=== PATIENT | female | born 2000 | race Caucasian/White ===

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

== ENCOUNTER 2018-06-22 10:47 | Emergency (ER) | payer OTHER ==
[~2018-06-22] VITALS: Ht 160 cm; Wt 76.2 kg
[2018-06-22 11:13] VITALS: Ht 160 cm; Wt 76.2 kg
[2018-06-22 12:10] VITALS: BP 130/80
== END 2018-06-22 12:10 | disposition home or self-care (01) ==
LOC: ED 10:47
DX: N39.0 Urinary tract infection, site not specified (principal)

== ENCOUNTER 2018-07-08 12:04 | Emergency (ER) | payer OTHER ==
[~2018-07-08] VITALS: Ht 157.5 cm; Wt 75.3 kg
[2018-07-08 12:17] VITALS: Ht 157.5 cm; Wt 75.3 kg
[2018-07-08 15:13] VITALS: BP 120/79
== END 2018-07-08 15:13 | disposition home or self-care (01) ==
LOC: ED 12:04
DX: J02.9 Acute pharyngitis, unspecified (principal)
CPT/HCPCS: J0561; J1885; J7512

== ENCOUNTER 2018-09-13 18:51 | Emergency (ER) | payer OTHER ==
[~2018-09-13] VITALS: Ht 157.5 cm; Wt 76.2 kg
[2018-09-13 18:59] VITALS: Ht 157.5 cm; Wt 76.2 kg
[2018-09-13 19:54] VITALS: BP 130/70
== END 2018-09-13 19:54 | disposition home or self-care (01) ==
LOC: ED 18:51
DX: B35.4 Tinea corporis (principal)

== ENCOUNTER 2019-06-04 21:21 | Emergency (ER) | payer OTHER ==
[~2019-06-04] VITALS: Ht 160 cm; Wt 80.9 kg
[2019-06-04 22:11] VITALS: BP 135/83; Ht 160 cm; Wt 80.9 kg
== END 2019-06-05 01:21 | disposition home or self-care (01) ==
LOC: ED 21:21
DX: J02.9 Acute pharyngitis, unspecified (principal)

== ENCOUNTER 2019-08-10 15:59 | Emergency (ER) | payer OTHER ==
[~2019-08-10] VITALS: Ht 160 cm; Wt 79.4 kg
[2019-08-10 16:06] VITALS: BP 114/76; Ht 160 cm; Wt 79.4 kg
== END 2019-08-10 19:03 | disposition home or self-care (01) ==
LOC: ED 15:59
DX: J03.90 Acute tonsillitis, unspecified (principal)

== ENCOUNTER 2019-09-26 18:33 | Emergency (ER) | payer OTHER ==
[~2019-09-26] VITALS: Ht 160 cm; Wt 78.0 kg
[2019-09-26 18:48] VITALS: Ht 160 cm; Wt 78.0 kg
[2019-09-26 19:22] LABS: BASOPHIL % 0.4 % (0-2); PLATELET COUNT 287 x10^3mcL (130-400); RED CELL DISTRIBUTION WIDTH 12.8 % (11.5-14.5)
[2019-09-26 19:28] LABS: CALCIUM 8.6 mg/dL (8.5-10.1); CARBON DIOXIDE 29.3 mmol/L (21-32); CHLORIDE SERUM 105 mmol/L (98-107); CREATININE SERUM 0.7 mg/dL (0.6-1.0); GFR1 > 60 mL/min; GLUCOSE SERUM 84 mg/dL (74-106); POTASSIUM SERUM 3.5 mmol/L (3.5-5.1); SODIUM SERUM 141 mmol/L (136-145)
[2019-09-26 19:32] LABS: ALBUMIN 3.9 g/dL (3.4-5.0); ALKALINE PHOSPHATASE 96 U/L (46-116); ALT/SGPT 42 U/L (14-59); AST/SGOT 19 U/L (15-37); BILIRUBIN TOTAL 0.2 mg/dL (0.20-1.00); LIPASE 107 IU/L (73-393); TOTAL PROTEIN, SERUM 8.1 g/dL (6.4-8.2)
[2019-09-26 20:50] VITALS: BP 109/85
== END 2019-09-26 20:51 | disposition home or self-care (01) ==
LOC: ED 18:33
PROVIDERS: Emergency Medicine
DX: K52.9 Noninfective gastroenteritis and colitis, unspecified (principal)
CPT/HCPCS: J1885; J2405; J7030

== ENCOUNTER 2019-11-14 08:43 | Emergency (ER) | payer OTHER ==
[~2019-11-14] VITALS: Ht 160 cm; Wt 78.5 kg
[2019-11-14 08:48] VITALS: Ht 160 cm; Wt 78.5 kg
[2019-11-14 10:31] VITALS: BP 106/65
== END 2019-11-14 10:31 | disposition home or self-care (01) ==
LOC: ED 08:43
DX: J02.0 Streptococcal pharyngitis (principal)
CPT/HCPCS: J0561; J7512

== ENCOUNTER 2020-02-20 20:29 | Emergency (ER) | payer OTHER ==
[~2020-02-20] VITALS: Ht 160 cm; Wt 82.6 kg
[2020-02-20 20:37] VITALS: Ht 160 cm; Wt 82.6 kg
[2020-02-20 22:20] VITALS: BP 93/65
== END 2020-02-20 22:20 | disposition home or self-care (01) ==
LOC: ED 20:29
DX: J03.90 Acute tonsillitis, unspecified (principal)
CPT/HCPCS: J1100